=== PATIENT | male | born 1995 | race American Indian/Alaskan Native ===

== ENCOUNTER 2017-10-25 18:29 | Emergency (ER) | payer SELFPAY ==
[2017-10-26] MEDS ORDERED: BICILLIN L-A IM ONE (00:25)
[2017-10-26] MEDS ORDERED: MOTRIN PO ONE (00:25)
--- NOTE | 2017-10-26 00:25 | Emergency Department Report ---
HPI - General Chief Complaint: Weakness Time Seen by Provider: 10/25/17 23:42 - HPI HPI: Patient reports that he was feeling weak yesterday and episode of vomiting. He said he is having sore throat and headache. He said he feels like he has some knots in the sides of his neck. Denies any vomiting in today. Reports headache reported 10 on and off. Reports chills but he said he did not take his temperature. Denies any nasal congestion, runny nose or toothache. Denies any drooling. He said he took [id number] medication but it did not help. Pain is worse with swallowing and. Headache states same. Immunizations up-to -date and he denies any medical problems. Denies any abdominal pain, back pain or urinary burning frequency or urgency. Denies any cough or shortness of breath/chest pain. ED Past Medical Hx - Past Medical History Previous Medical History?: No - Surgical History Past Surgical History?: No Additional Surgical History: SKIN GRAFT - Family History Family history: no significant - Social History Smoking Status: Never Smoker Substance Use Type: Marijuana - Medications Home Medications: Home Medications Medication Instructions Recorded Confirmed Last Taken Type HYDROcodone/APAP 5-325 [[place] 1 - 2 each PO Q6HR PRN #20 tablet 07/18/15 Unknown Rx 5/325] Ibuprofen [Motrin 800 MG tab] 800 mg PO Q8HR PRN #12 tablet 10/26/17 Unknown Rx Promethazine [Phenergan TAB] 25 mg PO Q6HR PRN #12 tab 10/26/17 Unknown Rx ED Review of Systems ROS: Stated complaint: GENERAL ILL FEELING Other details as noted in HPI Comment: All other systems reviewed and negative Constitutional: chills, weakness Eyes: denies: eye pain, eye discharge, vision change ENT: throat pain. denies: ear pain, dental pain, congestion Respiratory: no symptoms reported Cardiovascular: denies: chest pain, palpitations, dyspnea on exertion, edema, syncope, paroxysmal nocturnal dyspnea Gastrointestinal: nausea, vomiting. denies: abdominal pain, diarrhea, constipation Genitourinary: denies: dysuria, frequency, hematuria, discharge Musculoskeletal: denies: back pain, joint swelling, arthralgia, myalgia Skin: denies: rash Neurological: headache, weakness. denies: numbness, paresthesias, confusion, abnormal gait, vertigo Physical Exam - Physical Exam Vital Signs: Vital Signs 10/25/17 19:04 Temperature 99.9 F H Pulse Rate 74 Respiratory 16 Rate Blood Pressure 111/70 O2 Sat by Pulse 99 Oximetry General: This is a 21-year-old male well-nourished well-developed in no acute distress and nontoxic in appearance Physical Exam: Head: Normocephalic, atraumatic, no abrasion, no bruising and no contusion. Eyes: Biateral pupils equal and reactive to light, bilateral EOM intact.. Bilateral conjunctival and sclera without injection, normal accommodation. No nystagmus Mouth: Mucosa moist, positive pharyngeal exudate and erythema. No peritonsillar abscesses. Uvula is midline and oral airways patent. Ears: Bilateral TMs pearly cota Bilateral EAC without any redness swelling or drainage. No mastoid bone tenderness Nose: Bilateral nasal mucosa normal ,Maxillary and frontal sinuses non-tender to palpate. Neck: Supple, positive anterior Cervical adenopathy, full range of motion and no C-spine tenderness. No swelling or tracheal deviation normal reflexes Cardiovascular: S1, S2. Regular rate and rhythm. No murmur. Capillary refill is less then 3 seconds. Lungs: Clear to auscultate bilaterally. No rhonchi, wheezes or rales. No chest wall tenderness. No chest contusion. No bruising to chest. MSK: Strength 5/5 in all extremities. No joint deformity or crepitus. Normal inspection. Full range of motion to all extremities. No laceration, abrasion or ecchymotic area noted. Abdomen: Non-tender to palpate in all quadrants, no guarding or rebound tenderness, positive bowel sounds in all quadrants. No CVA tenderness. No hernia, bruit or mass. No rigidity or distention. Extremities: No clubbing, cyanosis or edema. +2 pulses. No neurovascular compromise Skin: Clean, dry and intact. No rash or lesions. Neurological: GCS at 15, Pt is alert and oriented 3 speech is clear . 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 Normal gait. Negative Romberg and no pronator drift. Normal Reflexes. No motor or sensory deficit Psych: Normal mood and behavior ED Course Vital Signs 10/25/17 19:04 Temperature 99.9 F H Pulse Rate 74 Respiratory 16 Rate Blood Pressure 111/70 O2 Sat by Pulse 99 Oximetry - Reevaluation(s) Reevaluation #1: 10/26/17 00:55 Patient with exudative pharyngitis and given Bicillin LA 1.2MU 1 intramuscularly and Motrin 800 mg by mouth for pain. able to tolerate oral liquids in the emergency room without any nausea or vomiting ED Medical Decision Making - Medical Decision Making ED course: Patient complaining of sore throat, headache and nausea and vomiting that started yesterday but no vomiting today. He reports chills and he has a temperature of 99.9 other vitals are stable. Patient found to have exudative pharyngitis, fever. Based on Centor criteria with absence of cough and any respiratory symptoms and sore throat, erythema with exudate, enlarged lymph nodes, cervical and fever patient with exudative pharyngitis. I discussed diagnosis and treatment plan and the need to follow-up with patient he doesn't have a primary care so I discussed with him that he needs to follow-up with [facility]. Patient was given Bicillin LA 1.2 million units IM and Motrin 800 mg by mouth. He stable and discharged home with prescription for Motrin and Phenergan. Critical care attestation.: If time is entered above; I have spent that time in minutes in the direct care of this critically ill patient, excluding procedure time. ED Disposition Clinical Impression: Exudative pharyngitis, Fever in adult, Nausea and vomiting in adult Disposition: DC-01 TO HOME OR SELFCARE Is pt being admited?: No Does the pt Need Aspirin: No Condition: Stable Instructions: Strep Throat (ED), Fever in Adults (ED), Acute Nausea and Vomiting (ED) Additional Instructions: Gargle with warm salt water at least 3 times a day and this will help to relieve sore throat Motrin as prescribed and this will help to relieve sore throat and fever Increase her fluid intake to 2-3 L of water daily Take Phenergan as needed for nausea and/or vomiting but please do not drive or operate heavy machinery as this medication causes drowsiness You're given Bicillin long-acting antibiotic to treat strep throat. This will state anybody for about 10 days so there are no need for any other antibiotics. He will continue to have sore throat for up to 3-4 days until antibiotic kicks in. Prescriptions: Ibuprofen [Motrin 800 MG tab] 800 mg PO Q8HR PRN #12 tablet PRN Reason: Pain Promethazine [Phenergan TAB] 25 mg PO Q6HR PRN #12 tab PRN Reason: Nausea Referrals: [facility] [Outside] - 10/29/17 Forms: Work/School Release Form(ED)
[2017-10-26 03:09] VITALS: BP 112/74
== END 2017-10-26 01:13 | disposition home or self-care (01) ==
LOC: ED 18:29
DX: J02.9 Acute pharyngitis, unspecified (principal); R11.2 Nausea with vomiting, unspecified; F12.10 Cannabis abuse, uncomplicated
CPT/HCPCS: 96372; 99282; J0561

== ENCOUNTER 2017-11-10 22:10 | Emergency (ER) | payer SELFPAY ==
[2017-11-10 23:23] VITALS: BP 107/60
--- NOTE | 2017-11-11 02:28 | Emergency Department Report ---
ED Headache HPI - General Chief Complaint: Headache Stated Complaint: MIGRAIN Time Seen by Provider: 11/11/17 02:14 - History of Present Illness Initial Comments: 21-year-old -[place] male comes to the emergency room complaining of headache as 9 out of 10 and is located behind his left eyes 2 weeks. 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 Patient reports that he took Motrin which helped. Patient also reports he has tooth pain that is intermittent and it gets worse when he's been in the freezer at work. Patient denies any nausea no vomiting no photophobia no change in vision no loss of consciousness no dizziness no recent head trauma. Patient's had a recent history of treatment of strep earlier this month on 10/26/2017. Patient currently takes no medications on a daily basis has no known drug allergies. Timing/Duration: 1 week (2) Quality: mild (3 out of 10 now, 9 out of 10 when he is at work in a freezer) Head Injury Location: frontal (behind the left eye) Recent Head Trauma: no recent headache/trauma, frequent headaches Associated Symptoms: denies: confusion, fatigue, fever/chills, loss of consciousness, nausea/vomiting, nasal congestion, nasal drainage, sinus infection, stiff neck, vision changes Allergies/Adverse Reactions: Allergies orange Adverse Reaction (Verified 07/18/15 22:14) Unknown Home Medications: Ambulatory Orders HYDROcodone/APAP 5-325 [[place] 5/325] 1 - 2 each PO Q6HR PRN #20 tablet 07/18/15 Ibuprofen [Motrin 800 MG tab] 800 mg PO Q8HR PRN #12 tablet 10/26/17 Promethazine [Phenergan TAB] 25 mg PO Q6HR PRN #12 tab 10/26/17 Butalb/Acetaminophen/Caffeine [Fioricet 50-300-40 mg CAP] 1 cap PO Q8HR PRN #15 cap 11/11/17 ED Review of Systems ROS: Stated complaint: MIGRAIN Other details as noted in HPI Constitutional: denies: chills, fever Eyes: denies: eye pain, eye discharge, vision change ENT: throat pain (intermittent tooth pain worse when he is in her freezer no pain at this time) Respiratory: denies: cough, shortness of breath, wheezing Cardiovascular: denies: chest pain, palpitations Endocrine: no symptoms reported Gastrointestinal: denies: nausea, vomiting Genitourinary: denies: urgency, dysuria Musculoskeletal: denies: back pain, joint swelling, arthralgia Skin: denies: rash, lesions Neurological: headache (3 out of 10). denies: weakness, confusion, abnormal gait, vertigo Psychiatric: anxiety Hematological/Lymphatic: denies: easy bleeding, easy bruising ED Past Medical Hx - Past Medical History Previous Medical History?: Yes Hx Psychiatric Treatment: Yes (Panic Attacks) - Surgical History Past Surgical History?: Yes Additional Surgical History: SKIN GRAFT - Social History Smoking Status: Never Smoker - Medications Home Medications: Home Medications Medication Instructions Recorded Confirmed Last Taken Type HYDROcodone/APAP 5-325 [[place] 1 - 2 each PO Q6HR PRN #20 tablet 07/18/15 Unknown Rx 5/325] Ibuprofen [Motrin 800 MG tab] 800 mg PO Q8HR PRN #12 tablet 10/26/17 Unknown Rx Promethazine [Phenergan TAB] 25 mg PO Q6HR PRN #12 tab 10/26/17 Unknown Rx Butalb/Acetaminophen/Caffeine 1 cap PO Q8HR PRN #15 cap 11/11/17 Unknown Rx [Fioricet 50-300-40 mg CAP] ED Physical Exam - General Limitations: No Limitations General appearance: alert, in no apparent distress - Head Head exam: Present: atraumatic, normocephalic - Eye Eye exam: Present: normal appearance - ENT ENT exam: Present: mucous membranes moist - Respiratory Respiratory exam: Present: normal lung sounds bilaterally. Absent: respiratory distress - Cardiovascular Cardiovascular Exam: Present: regular rate, normal rhythm. Absent: systolic murmur, diastolic murmur, rubs, gallop - GI/Abdominal GI/Abdominal exam: Present: soft, normal bowel sounds - Extremities Exam Extremities exam: Present: normal inspection - Back Exam Back exam: Present: normal inspection - Expanded Neurological Exam Expanded Patient oriented to: Present: person, place, time Cranial nerves: EOM's Intact: Normal, Gag Reflex: Normal, Tongue Deviation: Normal, Nystagmus: Normal, Facial Sensation: Normal Cerebellar function: Finger to Nose: Normal, Heel to Higgins: Normal, Romberg: Normal Upper motor neuron: Jay Neglect: Normal, Pronator Drift: Normal Sensory exam: Upper Extremity Light Touch: Normal, Upper Extremity Temperature: Normal, Lower Extremity Light Touch: Normal Motor strength exam: RUE: 5, LUE: 5, RLE: 5, LLE: 5 Best Eye Response (Souris): (4) open spontaneously Best Motor Response (Dottie): (6) obeys commands Best Verbal Response (Souris): (5) oriented Dottie Total: 15 - Psychiatric Psychiatric exam: Present: normal mood - Skin Skin exam: Present: warm, dry, intact, normal color. Absent: rash ED Course Vital Signs 11/10/17 11/10/17 22:29 23:34 Temperature 98.7 F 98.7 F Pulse Rate 72 68 Respiratory 16 20 Rate Blood Pressure 107/60 107/60 O2 Sat by Pulse 100 100 Oximetry ED Medical Decision Making - Radiology Data Radiology results: report reviewed, image reviewed FINDINGS: There is no evidence of acute stroke or hemorrhage. The ventricular system is appropriate in size and is symmetric. The visualized sinuses are clear. The mastoid air cells are well pneumatized. IMPRESSION: No acute intracranial process. Transcribed By: RB Dictated By: GISELA PAYTON MD Electronically Authenticated By: GISELA PAYTON MD Signed Date/Time: 11/11/17316 DD/ 6 TD/TT: 11/11/17316 - Medical Decision Making Patient has been evaluated by this provider fast track. Patient complains of headache for the last 2 weeks that responds to Motrin. 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 Patient has no visual problems , no dizziness no nausea no vomiting no loss of consciousness no head trauma, no photophobia. CT of the head. We will give patient ibuprofen. Critical care attestation.: If time is entered above; I have spent that time in minutes in the direct care of this critically ill patient, excluding procedure time. ED Disposition Clinical Impression: Headache Qualifiers: Headache type: unspecified Headache chronicity pattern: acute headache Intractability: intractable Qualified Code(s): R51 - Headache Disposition: DC-01 TO HOME OR SELFCARE Is pt being admited?: No Does the pt Need Aspirin: No Condition: Stable Instructions: Acute Headache (ED) Additional Instructions: Take headache medication as prescribed. Follow up with her primary care provider I have listed [facility] below for follow-up. Prescriptions: Butalb/Acetaminophen/Caffeine [Fioricet 50-300-40 mg CAP] 1 cap PO Q8HR PRN #15 cap PRN Reason: Headache Referrals: PRIMARY CARE, [Primary Care Provider] - 3-[address] [facility] [Provider Group] - 3-5 Days Forms: Work/School Release Form(ED)
[2017-11-11] MEDS ORDERED: MOTRIN PO ONE (02:54)
--- NOTE | 2017-11-11 03:22 | Cat Scan Report ---
FINAL REPORT EXAM: CT HEAD/BRAIN WO CON HISTORY: headache ?2 weeks TECHNIQUE: Routine imaging was obtained of the brain without IV contrast. FINDINGS: There is no evidence of acute stroke or hemorrhage. The ventricular system is appropriate in size and is symmetric. The visualized sinuses are clear. The mastoid air cells are well pneumatized. IMPRESSION: No acute intracranial process.
== END 2017-11-11 04:27 | disposition home or self-care (01) ==
LOC: ED 22:10
DX: R51 Headache (principal)
CPT/HCPCS: 70450; 99283